=== PATIENT | male | born 1955 | race Caucasian/White ===

== ENCOUNTER 2023-02-17 01:41 | Emergency (ER) | payer MEDICARE ==
[~2023-02-17] VITALS: Ht 152.4 cm; Wt 82.6 kg
[~2023-02-17 01:41] MED LIST: ASPIRIN ADULT L81 M2 PO; LIPITOR40 MG PO
[2023-02-17 03:20] LABS: BILIRUBIN Negative (Negative); BLOOD Negative (Negative); CLARITY Clear (Clear); COLOR Yellow (Yellow); GLUCOSE Negative (Negative); KETONE Negative (Negative); LEUKO ESTERASE Negative (Negative); NITRITE Negative (Negative); SPECIFIC GRAVITY <= 1.005 (1.001-1.030); UROBILINOGEN 0.2 E.U./dl (0.0-1.0)
[2023-02-17 03:20] LABS: BASO % 0.6 % (0.0-1.0); EOS # 0.3 10*3/uL (0.0-0.4); EOS % 5.4 % (1.0-4.0); HEMATOCRIT 40.7 % (42.0-52.0); LYMPH # 2.7 10*3/uL (1.3-4.4); LYMPH % 49.9 % (27.0-41.0); MEAN CELL VOLUME 88.3 fl (80.0-94.0); MEAN CORPUSCULAR HGB 31.5 pg (27.0-31.0); MEAN CORPUSCULAR HGB CONC 35.6 g/dl (33.0-37.0); MEAN PLATELET VOLUME 9.6 fl (9.6-12.3); MONO # 0.3 10*3/uL (0.1-1.0); MONO % 4.7 % (3.0-9.0); NEUT # 2.1 10*3/uL (2.3-7.9); NEUT % 39.2 % (47.0-73.0); PLATELET COUNT AUTOMATED 229 10*3/uL (130-400); RED BLOOD COUNT 4.61 10*6/uL (4.50-5.90); WHITE BLOOD COUNT 5.4 10*3/uL (4.8-10.8)
[2023-02-17 03:29] LABS: URINE AMPHETAMINES Negative (1000ng/ml); URINE BARBITURATES Negative (200ng/ml); URINE BENZODIAZEPINES Negative (200ng/ml); URINE CANNABINOIDS (THC) Negative (50ng/ml); URINE COCAINE Negative (300ng/ml); URINE METHADONE Negative (300ng/ml); URINE OPIATES Negative (300ng/ml); URINE PHENCYCLIDINE Negative (25ng/ml)
[2023-02-17 03:33] LABS: RBC 0-2 rbc/hpf (0-2); WBC 0-2 wbc/hpf (0-5)
[2023-02-17 03:36] LABS: ALKALINE PHOSPHATASE 66 U/L (46-116); BUN 9 mg/dl (9-23); CHLORIDE 106 mmol/L (98-107); CPK 98 U/L (34-171); ETHYL ALCOHOL 187.3 mg/dl (<3); MYOGLOBIN 55.7 ng/ml (16-116); POTASSIUM 3.7 mmol/L (3.4-5.1); SGPT/ALT 24 U/L (10-49); TOTAL PROTEIN 6.1 gm/dL (6.0-8.0)
== END 2023-02-17 05:02 | disposition short-term general hospital (02) ==
LOC: ED 01:41
PROVIDERS: Emergency Medicine
DX: I62.03 Nontraumatic chronic subdural hemorrhage (principal); R45.851 Suicidal ideations; F10.129 Alcohol abuse with intoxication, unspecified; Y90.6 Blood alcohol level of 120-199 mg/100 ml; E78.5 Hyperlipidemia, unspecified; I10 Essential (primary) hypertension; M10.9 Gout, unspecified; Z86.73 Personal history of transient ischemic attack (TIA), and cerebral infarction without residual deficits; Z88.0 Allergy status to penicillin; Z88.8 Allergy status to other drugs, medicaments and biological substances; Z91.040 Latex allergy status; F17.210 Nicotine dependence, cigarettes, uncomplicated; Z90.89 Acquired absence of other organs; Z98.890 Other specified postprocedural states; W19.XXXA Unspecified fall, initial encounter; Y93.89 Activity, other specified; Y92.002 Bathroom of unspecified non-institutional (private) residence as the place of occurrence of the external cause; Y99.8 Other external cause status

== ENCOUNTER 2023-06-14 21:42 | Emergency (ER) | payer MEDICARE ==
[~2023-06-14] VITALS: Ht 177.8 cm; Wt 79.4 kg
[~2023-06-14 21:42] MED LIST changes: +HYDROCODONE-AC1 EAC1 PO; +KAPSPARGO SPRIN25 MG PO; +LIPITOR20 MG PO; +METOPROLOL SUCC25 M2 PO; +PHARMASSURE V500 MCG PO; +TOPROL XL25 MG PO; +VITAMIN B-1100 M1 PO
[2023-06-14 22:58] LABS: BILIRUBIN Negative (Negative); BLOOD Negative (Negative); CLARITY Clear (Clear); COLOR Yellow (Yellow); GLUCOSE Negative (Negative); KETONE Negative (Negative); LEUKO ESTERASE Negative (Negative); NITRITE Negative (Negative); PH 5.5 (4.5-8.0); SPECIFIC GRAVITY <= 1.005 (1.001-1.030); UROBILINOGEN 0.2 E.U./dl (0.0-1.0)
[2023-06-14 23:11] LABS: MUCOUS 1+; RBC 0-2 rbc/hpf (0-2)
== END 2023-06-15 00:26 ==
LOC: ED 21:42
PROVIDERS: Internal Medicine
DX: I10 Essential (primary) hypertension (principal); I63.9 Cerebral infarction, unspecified; M10.9 Gout, unspecified; E78.00 Pure hypercholesterolemia, unspecified; Z88.0 Allergy status to penicillin; Z91.040 Latex allergy status; Z88.8 Allergy status to other drugs, medicaments and biological substances; Z90.89 Acquired absence of other organs; Z98.890 Other specified postprocedural states; F10.10 Alcohol abuse, uncomplicated; F17.200 Nicotine dependence, unspecified, uncomplicated

== ENCOUNTER 2023-07-11 15:06 | Inpatient (IN) | payer MEDICARE ==
[~2023-07-11] VITALS: Ht 177.8 cm; Wt 79.2 kg
[~2023-07-11 15:06] MED LIST changes: +BUPROPION HYDR150 M3 PO; +KEPPRA250 MG PO; +METOPROLOL SUCC50 M1 PO; +VITAMIN D3125 MC1 PO
[2023-07-11 16:56] VITALS: BP 128/83
[2023-07-11 20:00] VITALS: BP 114/76
[2023-07-12 07:33] VITALS: BP 121/78
[2023-07-12 07:56] LABS: BASO % 0.6 % (0.0-1.0); EOS # 0.2 10*3/uL (0.0-0.4); EOS % 3.7 % (1.0-4.0); HEMATOCRIT 40.7 % (42.0-52.0); LYMPH # 2.1 10*3/uL (1.3-4.4); LYMPH % 39.3 % (27.0-41.0); MEAN CELL VOLUME 90.8 fl (80.0-94.0); MEAN CORPUSCULAR HGB 31.9 pg (27.0-31.0); MEAN CORPUSCULAR HGB CONC 35.1 g/dl (33.0-37.0); MEAN PLATELET VOLUME 9.7 fl (9.6-12.3); MONO # 0.3 10*3/uL (0.1-1.0); MONO % 5.3 % (3.0-9.0); NEUT # 2.8 10*3/uL (2.3-7.9); NEUT % 50.7 % (47.0-73.0); PLATELET COUNT AUTOMATED 223 10*3/uL (130-400); RED BLOOD COUNT 4.48 10*6/uL (4.50-5.90); RED CELL DISTRI WIDTH 12.4 % (0-14.5); WHITE BLOOD COUNT 5.5 10*3/uL (4.8-10.8)
[2023-07-12 08:20] LABS: ALKALINE PHOSPHATASE 65 U/L (46-116); BUN 6 mg/dl (9-23); CHLORIDE 106 mmol/L (98-107); CHOLESTEROL 228 mg/dL (<200); LDL CHOLESTEROL 127 mg/dL (9-159); POTASSIUM 4.2 mmol/L (3.4-5.1); SGPT/ALT 9 U/L (10-49); TOTAL PROTEIN 6.7 gm/dL (6.0-8.0); TRIGLYCERIDES 270 mg/dl (<150)
[2023-07-12 08:59] LABS: VITAMIN D, 25-HYDROXY 22.4 ng/mL (30-100)
[2023-07-12 11:32] LABS: BILIRUBIN Negative (Negative); BLOOD Negative (Negative); CLARITY Clear (Clear); COLOR Yellow (Yellow); GLUCOSE Negative (Negative); KETONE Negative (Negative); LEUKO ESTERASE Negative (Negative); NITRITE Negative (Negative); PH 5.5 (4.5-8.0); UROBILINOGEN 0.2 E.U./dl (0.0-1.0)
[2023-07-12 11:47] LABS: BACTERIA TRACE; EPITHELIAL CELLS 0-2; MUCOUS TRACE; RBC 0-2 rbc/hpf (0-2); WBC 0-2 wbc/hpf (0-5)
[2023-07-12 13:59] VITALS: BP 112/77
[2023-07-12 20:00] VITALS: BP 132/100
[2023-07-13 08:00] VITALS: BP 90/68
[2023-07-13 13:00] VITALS: BP 100/63
[2023-07-13 20:00] VITALS: BP 111/73
[2023-07-14 08:00] VITALS: BP 117/71
[2023-07-14 20:00] VITALS: BP 128/81
[2023-07-15 07:54] VITALS: BP 116/69
[2023-07-15 20:00] VITALS: BP 130/80
[2023-07-16 07:19] VITALS: BP 115/76
[2023-07-16 20:00] VITALS: BP 148/97
[2023-07-17 08:00] VITALS: BP 134/76
[2023-07-17 19:09] VITALS: BP 132/82
[2023-07-18 08:10] VITALS: BP 110/77
[2023-07-18 20:00] VITALS: BP 131/89
[2023-07-19 07:26] VITALS: BP 121/80
[2023-07-19 20:00] VITALS: BP 134/68
[2023-07-20 08:00] VITALS: BP 134/83
[2023-07-20] MEDS ORDERED: MIRTAZAPINE15 M2 PO (09:12)
[2023-07-20] MEDS ORDERED: HYDROXYZINE HCL25 MG PO ×2 (09:12)
[2023-07-20] MEDS ORDERED: ARIPIPRAZOLE5 MG PO (09:12)
[2023-07-20] MEDS ORDERED: BUPROPION HYDR150 M3 PO (09:12)
[2023-07-20 20:00] VITALS: BP 130/88
[2023-07-21 07:31] VITALS: BP 102/60
== END 2023-07-21 12:18 | disposition home or self-care (01) | DRG 885 ==
LOC: 3N 15:06
PROVIDERS: ADMIT Psychiatry & Neurology Psychiatry; ATTEND Psychiatry & Neurology Psychiatry
DX: F33.2 Major depressive disorder, recurrent severe without psychotic features (principal); T42.6X2A Poisoning by other antiepileptic and sedative-hypnotic drugs, intentional self-harm, initial encounter; F34.1 Dysthymic disorder; Z20.822 Contact with and (suspected) exposure to COVID-19; F41.9 Anxiety disorder, unspecified; E78.5 Hyperlipidemia, unspecified; I10 Essential (primary) hypertension; F10.10 Alcohol abuse, uncomplicated; F17.210 Nicotine dependence, cigarettes, uncomplicated; F43.21 Adjustment disorder with depressed mood; M1A.0710 Idiopathic chronic gout, right ankle and foot, without tophus (tophi); K21.9 Gastro-esophageal reflux disease without esophagitis; Z88.0 Allergy status to penicillin; Z91.040 Latex allergy status; Y92.89 Other specified places as the place of occurrence of the external cause